=== PATIENT | male | born 1955 ===

== ENCOUNTER 2025-05-26 06:19 | Day surgery (SDC) | payer OTHER, SELFPAY ==
[2025-05-26 12:46] VITALS: BMI 24.7
[2025-05-26 12:49] VITALS: BP 124/72
[2025-05-26 12:58] VITALS: BMI 24.7
[2025-05-26 15:39] VITALS: BP 128/74
[2025-05-26 15:45] VITALS: BP 114/62
[2025-05-26 16:00] VITALS: BP 121/80
--- NOTE | 2025-05-26 16:51 | PTCARENOTE ---
Patient experiencing a lot of lower abdominal pain. Dr. Gambino recommending patient go to the Emergency room for further workup. ER notified by Dr. Gambino. Patient transported to ER with right wrist IV in place. Patients friend with patient.
== END 2025-05-26 15:41 | disposition home or self-care (01) ==
LOC: SDS 06:19
PROVIDERS: ATTENDING PHYSICIAN Student in an Organized Health Care Education/Training Program
DX: Z12.11 Encounter for screening for malignant neoplasm of colon (principal); D12.0 Benign neoplasm of cecum; D12.3 Benign neoplasm of transverse colon; D12.4 Benign neoplasm of descending colon; K63.5 Polyp of colon; K56.2 Volvulus; K64.8 Other hemorrhoids; K64.4 Residual hemorrhoidal skin tags; K56.690 Other partial intestinal obstruction; R19.5 Other fecal abnormalities
CPT/HCPCS: 45385; 45380; 74177; 80053; 83690; 85025; 88305; Q9967